=== PATIENT | male | born 1940 | race Caucasian/White ===

== ENCOUNTER 2024-08-06 14:24 | Inpatient (IN) | payer OTHER, SELFPAY ==
[2024-08-06] VITALS (8 sets, daily range): BP systolic 101–122; BP diastolic 65–84; BMI 20.4; BMI 22.2
--- NOTE | 2024-08-06 12:14 | ED.GENMED ---
History of Present Illness
General
Chief Complaint: Breathing Problem
Time Seen by Provider: 08/06/24 12:01
History of Present Illness
History of Present Illness:
83-year-old male with history of COPD, chronic tobacco abuse, and prior stroke presents to the emergency department from home for reported shortness of breath as well as worsening wound to the left great toe. Patient is not certain why he is here
however was sent in by family due to these complaints. States he has been short of breath for 15+ years and denies any acute worsening. No fever.
Past History
Past History
ED Past Medical History: CAD, COPD, CVA and Other (Stroke, prostate cancer, bilateral hearing impairment, left hip fracture); Negative HTN, Hypercholesterolemia or NIDDM
ED Past Surgical History: Orthopedic (Knee arthroscopy) and Other (Removal of prostate for cancer, and multiple urologic surgeries)
Social History
Tobacco: Smoker
Alcohol: Occasional
Drug: None
Personal:
Living: alone
Employment: Retired
Family History
Family History: Other (Noncontributory)
Review of Systems
Review of Systems
Allergies reviewed?: Yes
All Other Systems: ROS reviewed and negative except as documented in HPI and ROS
Phy Exam
Physical Exam
Physical Exam:
GEN: Well appearing, NAD, WDWN
HEENT: Oral mucosa moist, no scleral icterus
Cardiac: Regular rate and rhythm
Lung: No respiratory distress, no tachypnea, diminished breath sounds bilat, no wheezes
MSK: No gross deformity or injuries
Skin: Good color, no pallor or jaundice. Large necrotic gangrenous wound to the dorsal medial aspect of the left great toe, left dorsalis pedis pulses not appreciated by Doppler however monophasic PT pulses found. Diffuse edema to the left midfoot
and erythema extending from the necrotic wound to the midfoot. There are several more superficial ulcerations to the medial aspect of the right foot and great toe, dorsalis pedis pulses monophasic and weak by Doppler, posterior tibialis is biphasic
and stronger by Doppler on the right
Neuro: AO x3, moves all extremities freely
Psych: Calm, cooperative
Scores
Heart Failure Risk
Heart Failure Risk Score: Not Applicable
Course
Orders/Labs/Results
Orders:
Orders
08/06/24 Lunch
Clear Liquid
At Your Request: Limited Participation
08/06/24 12:13
CR Toe(s) Min 2 Vw Left Urgent
Comment:
Reason For Exam: gangrene
08/06/24 12:14
CMP [Comprehensive Metabolic Panel] Urgent
Complete Blood Count/With Diff Urgent
ESR [Erythrocyte Sed Rate] Urgent
CR Chest - 2 Views Urgent
Comment:
Reason For Exam: SOB
08/06/24 12:15
COVID-19 Antigen Urgent
Source: Nasal Swab
CRP [C-Reactive Protein] Urgent
Prothrombin Time Urgent
Influenza A+B Rapid Molecular Urgent
LYSSA Source: Nasal Swab
Specimen Description:
08/06/24 13:16
CR Ankle - Right Min 3 Views * Urgent
Comment:
Reason For Exam: pain
08/06/24 13:31
Piperacillin/Tazo 3.375 Gram [Zosyn] 3.375 gram in 50 ml IV NOW
08/06/24 14:05
Admit/Transfer Patient As Directed
Co-Sign Provider:
Level of Care: Inpatient admission
Assign to:: Medical/Surgical
Physician / Group: htay
Diagnosis: Gangrene of toe of left foot, Cellulitis of left foot, undiagnosed PAD
Reason for Hospitalization: Gangrene of toe of left foot, Cellulitis of left foot, suspected undiagnosed PAD
Expected length of stay greater than two midnights?: Yes
ELOS- Estimated Length of Stay in days: 3
I certify the patient meets the requirements for IP care: Yes
08/06/24 14:09
Code Status As Directed
Resuscitation Status: Full Code
08/06/24 14:20
Code Status As Directed
Resuscitation Status: Do not resuscitate
Reached after discussion with pt or family/Healthcare POA: Yes
Decision communicated with: daughter
DNR Bracelet Application ONCE
08/06/24 15:34
0.9% Sodium Chloride 1000 ml [Nss] 1,000 ml IV 60 mls/hr
Acetaminophen [Tylenol] 650 mg PO Q4HPRN PRN
Albuterol [ProAIR HFA INHALER] 2 puff INH R Q6HPRN PRN sob/wheezing
Bisacodyl [Dulcolax] 10 mg RECTAL [id number] PRN
Docusate W/Senna [Senokot-S] 1 tablet PO BIDPRN PRN
HYDROmorphone [Dilaudid] 0.5 mg IV Q4HPRN PRN
Ipratropium/Albuterol Sulfate [Duoneb] 3 ml INH R Q4HPRN PRN copd
Ketorolac [Toradol] 10 mg IV Q6HPRN PRN
Ondansetron Injectable [Zofran] 4 mg IV Q6HPRN PRN
Polyethylene Glycol Powder [Miralax] 17 grams PO DAILYPRN PRN
08/06/24 15:34
PODIATRY CONSULT Routine
Consulting Provider: Misty Silva
Was physician already notified: Yes
Reason for consult: Lt great toe gangrene
Activity As Directed
Activity Level: With Assistance
Intake/ Output As Directed
Frequency: Per unit guidelines
Vital Signs As Directed
Frequency: Per unit guidelines
O2 Therapy [RESP] Routine
Nasal Cannula Liter Flow: 2 LPM
Titrate/Wean O2 to maintain O2 sat greater than (%): 92
DX Deep Vein Thrombosis Video Routine
08/06/24 16:07
Vancomycin [Vancocin] 1,500 mg 0.9% Sodium Chloride 500 ml [Nss] 500 ml IV NOW
08/06/24 18:00
Enoxaparin Sodium [Lovenox] 40 mg SC QPM
08/06/24 20:00
Piperacillin/Tazo 3.375 Gram [Zosyn] 3.375 gram in 50 ml IV Q6H
czsvyjhaqa-snsvkopf-gpejfedico [Breztri Aerosphere] 2 inh INH R BID
08/06/24 22:00
Aspirin Low Dose EC [Aspir Low (Enteric Coated)] 81 mg PO HS
Cetirizine HCl [Zyrtec] 10 mg PO HS
Sennosides [Senokot] 8.6 mg PO HS
08/07/24 06:00
Basic Metabolic Panel IN AM
Complete Blood Count/With Diff IN AM
08/07/24 08:00
Escitalopram Oxalate [Lexapro] 5 mg PO DAILY
Nicotine [Nicoderm Transdermal] 14 mg TRANSDERM DAILY
Pantoprazole [Protonix] 40 mg PO DAILY
Abnormal Lab Results
08/06/24 08/06/24
12:14 12:15
RBC 3.77 L 10^6/uL
(4.70-6.10)
Hgb 7.8 L g/dL
(13.0-18.0)
Hct 29.7 L %
(39.0-52.0)
MCV 78.8 L fL
(80.0-94.0)
MCH 20.7 L pg
(27.0-31.0)
MCHC 26.3 L g/dL
(33.0-37.0)
RDW 19.9 H %
(11.5-14.5)
Absolute Monos (auto) 1.0 H 10^3/uL
(0.1-0.6)
Monocytes % 11.1 H %
(1.7-9.3)
ESR 74 H mm/hour
(0-20)
Carbon Dioxide 31 H mmol/L
(22-30)
Glucose 104 H mg/dl
(70-99)
Alkaline Phosphatase 150 H U/L
(38-126)
C-Reactive Protein 70.50 H mg/L
(0.0-10.00)
08/06/24 12:14
08/06/24 12:14
Vital Signs
Initial and Last Documented VS:
Initial Vital Signs
Temp Pulse Resp Pulse Ox
98.1 F 100 26 96
08/06/24 11:57 08/06/24 11:57 08/06/24 11:57 08/06/24 11:57
Last Documented Vital Signs
Temp Pulse Resp BP Pulse Ox
98.7 F 99 20 121/67 97
08/06/24 15:46 08/06/24 15:46 08/06/24 15:46 08/06/24 15:46 08/06/24 16:12
MDM/Problems Addressed
MDM/Problems Addressed:
Will admit the patient for likely severe peripheral arterial disease with necrotic changes of the foot. He has no acute pain suggesting acute arterial embolism. Regards to his breathing difficulty his symptoms did improve with DuoNeb and steroids
given prehospital however at this time has no wheezing and no x-ray findings concerning for acute infectious etiology
*Pulse Oximetry
SaO2: 96
Nasal Cannula flow liters per minute: 2
*Critical Care Note
Total Time (30-74mins, 75-104mins- exclusive of procedures): Not Applicable
ED Attending Note
-
Portions of this chart may have been created with voice recognition software.� Occasional wrong word or��sound alike� substitutions may have occurred due to the inherent limitations of voice recognition software.
Discharge Plan
Departure
Patient Disposition: Admit
Date of Disposition: 08/06/24
Time of Disposition: 13:31
Admit to: Med/Surg
Presentation/result/management discussed w/ accepting MD/DO: Hospitalist
Discharge Problem:
Gangrene of toe of left foot, Cellulitis of foot, left, PAD (peripheral artery disease)
Interventions
Interventions:
*Risk Screen - Suicide Last Done: 08/06/24 11:57
*General Assessment Last Done: 08/06/24 11:57
*Neglect/Abuse Screening Last Done: 08/06/24 11:57
*ED- Fall Risk Assessment Last Done: 08/06/24 11:57
*ED COVID-19 Vaccine History Last Done: 08/06/24 11:57
*Nursing Disposition Last Done: 08/06/24 15:28
ED- Cardiac Assessment Last Done: 08/06/24 12:03
ED- Pulmonary Assessment Last Done: 08/06/24 12:03
Discharge Date and Time
Discharge Date/Time: 08/06/24 15:35
[2024-08-06 12:34] LABS: INR 0.99; PT 13.4 Sec (11.4-14.6)
[2024-08-06 12:42] LABS: COVID-19 Antigen Negative (Negative)
[2024-08-06 12:49] LABS: ALT (SGPT) 17 U/L (0-50); AST (SGOT) 27 U/L (17-59); Albumin 3.5 g/dl (3.5-5.0); Alkaline Phosphatase 150 U/L (38-126); Blood Urea Nitrogen 13 mg/dl (9-20); Calcium 8.7 mg/dl (8.4-10.2); Carbon Dioxide 31 mmol/L (22-30); Chloride 101 mmol/L (98-107); Estimated Creatinine Clearance 72 ml/min; Glucose 104 mg/dl (70-99); Potassium 4.5 mmol/L (3.5-5.1); Sodium 139 mmol/L (135-145); Total Bilirubin 0.4 mg/dl (0.2-1.3); Total Protein 6.7 g/dl (6.3-8.2); eGFR > 60.00
--- NOTE | 2024-08-06 13:39 | HPS.HSE ---
Family Physician
-
Family Physician: Prateek Paniagua
Chief Complaint
-
- from home for reported shortness of breath as well as worsening wound to the left great toe.
- Patient is not certain why he is here however was sent in by family due to these complaints.
History of Present Illness
HPI
81M HX home O2 dependent COPD and chronic hypoxic respiratory failure seen at ER:
- from home for reported shortness of breath as well as worsening wound to the left great toe.
- Patient is not certain why he is here however was sent in by family due to these complaints.
- he has been short of breath for 15+ years and denies any acute worsening.
- No fever.
Medical History
Past Medical History
Past Medical History: Reports Other
Additional Past Medical History:
o2 dependant at home
COPD
chronic respiratory failure
cad
cva
prostate ca
Past Surgical History: Reports Other
Additional Past Surgical History:
right knee surgery
prostatectomy
Social History
Tobacco: Smoker (0.5 pack daily)
Alcohol: None
Drug: None
Personal: Single
Living: With Family
Employment: Retired
Family History
Family History: Not pertinent
Allergies / Home Medications
Allergies reflects when Allergies were last updated in [employer].
Home Medications with original date entered in [employer]
Allergy/Medication List:
Allergies
Allergy/AdvReac Type Severity Reaction Status Date / Time
No Known Allergies Allergy Verified 04/05/18 14:38
Home Medications
albuterol sulfate 90 mcg/actuation aerosol inhaler 2 puff inhalation R Q6 PRN sob/wheezing 04/15/22
aspirin 81 mg tablet,delayed release 81 mg PO HS 04/15/22
budesonide 160 mcg-glycopyr 9 mcg-formot 4.8 mcg/actuation HFA inhaler (Breztri Aerosphere) 2 inh inhalation R BID 04/15/22
cetirizine 10 mg tablet (Zyrtec) 10 mg PO HS 04/15/22
ipratropium 0.5 mg-albuterol 3 mg (2.5 mg base)/3 mL nebulization soln 3 ml inhalation R Q4 PRN copd 04/15/22
lorazepam 0.5 mg tablet 0.25 - 0.5 mg PO Q6H PRN anxiety 04/15/22
multivitamin 1 tab PO DAILY 04/15/22
ondansetron HCl 8 mg tablet 8 mg PO Q8H PRN nausea/vomiting 04/15/22
pantoprazole 40 mg tablet,delayed release 40 mg PO DAILY 04/15/22
prednisone 5 mg tablet 5 mg PO DAILY 04/15/22
sennosides 8.6 mg tablet (Senokot) 8.6 mg PO HS 04/15/22
Review of Systems
-
Constitutional: Reports No Symptoms
EENT: Reports No Symptoms
Respiratory: Reports Trouble Breathing
Cardiac: Reports No Symptoms
Abdomen/GI: Reports No Symptoms
: Reports No Symptoms
Skin: Reports Other (worsening wound to the left great toe)
Neurological: Reports No Symptoms
Endocrine: Reports No Symptoms
Hematologic/Lymphatic: Reports No Symptoms
Psych: Reports No Symptoms
Physical Exam
Vital Signs
Vital Signs
Temp Pulse Resp BP Pulse Ox
98.2 F 97 27 122/65 96
08/06/24 12:00 08/06/24 12:00 08/06/24 12:00 08/06/24 12:00 08/06/24 12:16
Physical Exam
General: Well Developed, Well Nourished and No Apparent Distress
HEENT: NormoCephalic, Moist mucous membranes and Atraumatic
Respiratory: Clear
Cardiac: S1/S2 and Regular Rhythm; No Murmur or Rub
GI: Soft, Non Tender, Non Distended and Normal Bowel Sounds; No Organomegaly
Rectal: Deferred by Provider
Musculoskeletal: No Clubbing, No Cyanosis and No Edema
Skin: Rash and Other (worsening wound to the left great toe)
Neuro: Nonfocal/grossly intact
Laboratory Results
-
08/06/24 12:14
Laboratory Results
PT 13.4 Sec (11.4-14.6) 08/06/24 12:15
INR 0.99 08/06/24 12:15
Total Bilirubin 0.4 mg/dl (0.2-1.3) 08/06/24 12:14
AST 27 U/L (17-59) 08/06/24 12:14
ALT 17 U/L (0-50) 08/06/24 12:14
Alkaline Phosphatase 150 U/L (38-126) H 08/06/24 12:14
Data Reviewed
-
Diagnostic Radiology: Other (pending )
Old Records: Reviewed
Impression/Plan
-
Vital Signs
Temp Pulse Resp BP Pulse Ox
98.2 F 97 27 122/65 96
08/06/24 12:00 08/06/24 12:00 08/06/24 12:00 08/06/24 12:00 08/06/24 12:16
Abnormal Labs
08/06/24 08/06/24
12:14 12:15
Carbon Dioxide 31 H
Glucose 104 H
Alkaline Phosphatase 150 H
C-Reactive Protein 70.50 H
Pending XR: Ankle , CXR and Lt Foot and G Toer XR
Last hospitalist admission: 04/15/2022 - 04/19/2022
DISCHARGE DIAGNOSIS:
- Chronic obstructive pulmonary disease exacerbation with hypoxic respiratory failure.
ASSESSMENT & PLAN
Pending Rx reconciliation
Gangrene of Lt great toe
left foot cellulitis
Rt foot 3 planter ulcers , two at Medial planter surface, one at lateral planter surface
Suspect PAD (peripheral artery disease)
Elevated CRP
Suspect undiagnosed vasculopathy
HX CAD
Nicotine Dependence
- f/u final XR report
- Empiric Vanco and Zosyn
- Developmental Psychologist consult
HX advanced COPD , home O2 depedent chronic hypoxic respiratory failure
-Supplemental O2 to keep sat greater than 92
-DuoNebs as needed
CAD
-Aspirin continued
Anxiety
-Lorazepam continued
GERD
-Protonix continued
Nicotine dependence
-Smokes half a pack a day
-Nicotine patch
-Encouraged smoking cessation
DVT Px: LMWH
Code: DNR per daughter
IP MS
[2024-08-06] MEDS: ZOSYN 50 IV ×2 (13:41→21:12)
[2024-08-06 13:59] LABS: Erythrocyte Sed Rate 74 mm/hour (0-20)
[2024-08-06 14:10] LABS: % Basophils 0.3 % (0-2); % Eosinophils 3.3 % (0-6); % Immature Granulocytes 0.3 % (0-0.5); % Lymphocytes 21.5 % (20.5-51.1); % Monocytes 11.1 % (1.7-9.3); % Neutrophils 63.5 % (42.2-75.2); Absolute Eosinophils 0.3 10^3/uL (0-0.7); Absolute Neutrophils 5.8 10^3/uL (1.4-6.5); Hematocrit 29.7 % (39.0-52.0); Hemoglobin 7.8 g/dL (13.0-18.0); Mean Corp Hgb Conc. 26.3 g/dL (33.0-37.0); Mean Corpuscular Hgb 20.7 pg (27.0-31.0); Mean Corpuscular Volume 78.8 fL (80.0-94.0); Mean Platelet Volume 9.1 fL (7.4-10.4); Nucleated Red Blood Cells % 0 % (-); Platelet Count 359 10^3/uL (130-400); Red Blood Cell Count 3.77 10^6/uL (4.70-6.10); Red Cell Dist. Width 19.9 % (11.5-14.5); White Blood Cell Count 9.2 10^3/uL (4.8-10.8)
--- NOTE | 2024-08-06 14:43 | CM ---
CM reviewed chart and met with pt and daughter Nohemi at bedside in ED.
Lives with Nohemi and grandmalini Carreno, multistory split level home, 3-4 ANA, 6 steps to BR/BA
Per pt and daughter he does not leave his room once inside, has commode. Ambulates in room with RW, also has cane
Needs assistance with ADLs and personal care, daughter brings meals to his room.
Has home O2, concentrator and portable tanks from [facility] [employer].
Hx with [facility] and SNF at [facility].
PCP: Prateek Paniagua
Pharmacy: [facility]
Discharge plan: Pending outcome of ongoing medical evaluation
[2024-08-06 15:18] LABS: Normal RBC Morphology No
[2024-08-06 15:20] LABS: Anisocytosis 2+; Hypochromasia 2+; Target Cells 1+
--- NOTE | 2024-08-06 15:46 | CON.VAS ---
Addendum entered and electronically signed by Christian Gillette MD 08/06/24 17:53:
Seen and examined with TYORNE Munroe. Agree with findings as noted below. 83-year-old male with chronic multiple medical conditions including chronic COPD/respiratory failure, oxygen dependent, CAD, longstanding tobacco use. Has bilateral foot
wounds. Left first toe gangrene, right sided potentially ischemic appearing ulcers. He does potentially note some pain in the feet at night, but slightly difficult to really ascertain if he is having pain (history challenging). He does not really
walk much per his daughter who is at the bedside.
On exam/he is awake and alert. His breathing is somewhat labored even at rest. He is on oxygen nasal cannula. His abdomen is soft. Groins demonstrate nonpalpable femoral pulses bilaterally. Nonpalpable distally. Left first toe with ischemic
changes and dry gangrene. Right first toe plantar aspect and medially with ulceration is circular in nature, dry but red tissue/granulation seen.
Plan/ Bilateral lower extremity chronic limb threatening ischemia. He is a very high risk patient. I suspect he has multilevel disease including likely heavy plaque laden aorta and inflow disease. I am not sure that revascularization will be
simple for him. However he has limb-threatening ischemia and therefore amputation would be the other option here. I do not know that he be a candidate for any open surgical procedure but we have to see what the options are. Therefore recommend
CTA of the aorta with runoff and then I will talk to him about options for revascularization pending restratification.
Original Note:
Consultation
Consultation Request
Date/Time Consultation Performed: 08/06/24 4pm
Performing Provider: Nain
Reason for Consultation: Nonhealing bilateral foot wounds
Medical History
-
Chief Complaint: Nonhealing left great toe wound
History of Present Illness:
83-year-old male with past medical history COPD, chronic respiratory failure, CAD, CVA, prostate cancer, O2 dependent (medical information obtained from hospital medical records) presents today to the emergency room for nonhealing left great toe
wound. Patient and family member are poor historians and cannot recall any of his medical history. Family member did admit to caring for the left toe wound as well as scattered wounds to bilateral feet with Epsom salt baths and peroxide for the
last month. She states that the wounds began 1 month ago. They are unaware of how wounds began or if patient has had wounds in the past. They are unsure if patient has had stenting, ballooning, surgeries or procedures on either leg. Patient is
unsure why he is at the hospital.
Vascular surgery consult for nonhealing wounds. Patient seen at bedside in the ER. I could not appreciate any distal palpable pulses or femoral pulses. I could not obtain a Doppler signal at the DP or PT. Right foot warm with good cap refill,
image below. Left foot warm with sluggish cap refill to the great toe. Image below. Patient states he has no pain in the great toe and does not feel ready to palpate. Patient admits to occasional pain in the feet at night. Patient admits to
occasional pain in the feet at rest. Patient does not walk he states that he rolls around in a chair at home. He is unsure if he has ever had claudication.
Patient is an active smoker, states he has been smoking since he was 4 years old.
Right foot
Left foot
Past Medical History
Past Medical History: Other (See above)
Past Surgical History: Other (See above)
Social History
Tobacco: Smoker (Since 4 years old)
Alcohol: None
Drug: None
Personal: Single
Living: With Family
Employment: Retired
Family History
Family History: Reviewed & Not Pertinent
Allergies / Home Medications
Allergy/AdvReac Type Severity Reaction Status Date / Time
No Known Allergies Allergy Verified 08/06/24 11:57
�Medication �Instructions �Recorded �Confirmed �Type
albuterol sulfate 90 mcg/actuation 2 puff inhalation R Q6HPRN PRN 04/15/22 08/06/24 History
aerosol inhaler sob/wheezing
aspirin 81 mg tablet,delayed 81 mg PO HS Blood clot 04/15/22 08/06/24 History
release prevention/tx
budesonide 160 mcg-glycopyr 9 2 inh inhalation R BID 04/15/22 08/06/24 History
mcg-formot 4.8 mcg/actuation HFA Lung/breathing issues
inhaler (Breztri Aerosphere)
cetirizine 10 mg tablet (Zyrtec) 10 mg PO HS Allergies 04/15/22 08/06/24 History
ipratropium 0.5 mg-albuterol 3 mg 3 ml inhalation R Q4HPRN PRN copd 04/15/22 08/06/24 History
(2.5 mg base)/3 mL nebulization
soln
multivitamin 1 tab PO DAILY Supplement 04/15/22 08/06/24 History
pantoprazole 40 mg tablet,delayed 40 mg PO DAILY Gastrointestinal 04/15/22 08/06/24 History
release issue
sennosides 8.6 mg tablet (Senokot) 8.6 mg PO HS Constipation 04/15/22 08/06/24 History
escitalopram oxalate 5 mg tablet 5 mg PO DAILY 08/06/24 08/06/24 History
(Lexapro)
naproxen sodium 220 mg tablet 220 mg PO BIDPRN PRN mild pain 08/06/24 08/06/24 History
(Aleve)
Review of Systems
-
History Source: Patient and Family
All other systems: Negative unless noted
Constitutional: Reports No Symptoms
EENT: Reports No Symptoms
Respiratory: Reports Trouble Breathing
Cardiac: Reports No Symptoms
Vascular: Reports Leg Pain / Claudication
Abdomen/GI: Reports No Symptoms
: Reports No Symptoms
Musculoskeletal: Reports Edema
Skin: Reports Other (Nonhealing wounds bilaterally)
Neurological: Reports No Symptoms
Endocrine: Reports No Symptoms
Physical Exam
Vital Signs
Temp Pulse Resp BP Pulse Ox
98.2 F 102 26 101/80 96
08/06/24 12:00 08/06/24 15:15 08/06/24 15:15 08/06/24 15:00 08/06/24 12:16
Lab Results
08/06/24 12:14
08/06/24 12:14
Physical Exam
General: No Apparent Distress
HEENT: Normocephalic and Atraumatic
Respiratory: Non Labored Respirations
Cardiac: Negative JVD
GI: Soft and Non Tender
Musculoskeletal: Cyanosis and Edema
Skin: Warm, Dry and Other (See images above for wounds)
Neuro: Awake and Alert
Psych: Calm
Assessment / Plan
-
83-year-old male here with nonhealing bilateral foot wounds left greater than right, images above
Plan:
- CTA aorta with runoff
- Will discuss with attending when scan complete
Data Reviewed
-
Labs: Labs Reviewed by me
[2024-08-06] MEDS: NSS 1000 IV (16:30)
[2024-08-06] MEDS: VANCOCIN 530 MG IV (16:31)
--- NOTE | 2024-08-06 16:33 | PHA.VAN.IN ---
Assessment
- Assessment
Renal Function: Appears similar to baseline (04/18/22 BASELINE SCR: 0.9)
Concomitant Antimicrobials: ZOSYN
- Previous Dosing Experience
Previous Regimen: NONE
AUC Dosing Plan
- Dosing Variables
Dosing Weight (kg): 66.3
Dosing CrCl (ml/min): 72
Vd coefficient (L/kg): 0.7
- Empiric Dosing
Initial / Loading Dose: 1500MG
Maintenance Regimen: 750MG IV Q12H
Estimated AUC (mcg*h/mL): 520
Estimated Peak (mcg*h/mL): 30.1
Estimated Trough (mcg/ml): 14.9
Estimated Half Life (H): 10.8
Pharmacokinetics Vancomycin I
- -
Patient Age: 83
Patient Sex: Male
Vancomycin Day #: 1
Indication: Skin And Soft Tissue (GANGRENE [L] GREAT TOE)
Requesting Provider: KIARRA
Height / Weight:
Height 5 ft 10 in
Actual Weight 70.307 kg
Pertinent Past Medical History: PLANTAR FOOT ULCERS
- Vital Signs / Lab Results
Temp Pulse Resp BP Pulse Ox
98.7 F 99 20 121/67 97
08/06/24 15:46 08/06/24 15:46 08/06/24 15:46 08/06/24 15:46 08/06/24 16:12
Lab Results - Hematology
08/06/24
12:14
WBC 9.2
Lab Results - Chemistry
08/06/24
12:14
BUN 13
Creatinine 0.7
Estimated Creat Clear 72
Albumin 3.5
Microbiology Results
08/06/24 12:15 Influenza Types A & B (MERVAT) - Final
Nasal Swab Negative for Influenza A & B, NAAT
Negative results must be combined with clinical observations
and patient history.
Nucleic Acid Amplification test (NAAT)performed on the
[employer] platform.
[2024-08-06] MEDS: LOVENOX 40 MG SC (17:11)
[2024-08-06] MEDS: SYMBICORT 160/4.5 MCG INHALER 2 PUFF INH (19:25)
--- NOTE | 2024-08-06 20:30 | PTCARENOTE ---
Patient taken to CT via accompanied by PCT. Patient able to stand and pivot to WC without difficulty. CT called shortly after, patient unable to tolerate laying flat and restless on CT stretcher. Unable to perform scan at this time.
[2024-08-06] MEDS: SENOKOT 8.6 MG PO (21:12)
[2024-08-06] MEDS: ASPIR LOW (ENTERIC COATED) 81 MG PO (21:12)
[2024-08-06] MEDS: ZYRTEC 10 MG PO (21:12)
[2024-08-06] MEDS: TORADOL 10 MG IV (21:36)
[2024-08-07] MEDS: ZOSYN 50 IV ×4 (02:28→20:15)
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
[2024-08-07] MEDS: DILAUDID 0.5 MG IV ×3 (03:32→17:23)
[2024-08-07] MEDS: VANCOCIN 150 IV (05:29)
[2024-08-07 07:07] VITALS: BP 148/78
[2024-08-07 07:46] LABS: % Basophils 0.1 % (0-2); % Immature Granulocytes 0.6 % (0-0.5); % Lymphocytes 11.1 % (20.5-51.1); % Monocytes 5.8 % (1.7-9.3); % Neutrophils 82.4 % (42.2-75.2); Absolute Immature Granulocytes 0.1 10^3/uL (0-0.05); Absolute Monocytes 0.5 10^3/uL (0.1-0.6); Absolute Neutrophils 7.4 10^3/uL (1.4-6.5); Hematocrit 29.4 % (39.0-52.0); Hemoglobin 7.7 g/dL (13.0-18.0); Mean Corp Hgb Conc. 26.2 g/dL (33.0-37.0); Mean Corpuscular Hgb 20.4 pg (27.0-31.0); Mean Platelet Volume 8.9 fL (7.4-10.4); Nucleated Red Blood Cells % 0 % (-); Platelet Count 347 10^3/uL (130-400); Red Blood Cell Count 3.77 10^6/uL (4.70-6.10); Red Cell Dist. Width 19.8 % (11.5-14.5); White Blood Cell Count 8.9 10^3/uL (4.8-10.8)
[2024-08-07 08:09] LABS: Blood Urea Nitrogen 18 mg/dl (9-20); Calcium 8.7 mg/dl (8.4-10.2); Carbon Dioxide 32 mmol/L (22-30); Chloride 102 mmol/L (98-107); Estimated Creatinine Clearance 77 ml/min; Glucose 126 mg/dl (70-99); Potassium 4.9 mmol/L (3.5-5.1); Sodium 139 mmol/L (135-145); eGFR > 60.00
[2024-08-07] MEDS: SYMBICORT 160/4.5 MCG INHALER 2 PUFF INH ×2 (08:15→20:50)
[2024-08-07] MEDS: SPIRIVA RESPIMAT 2.5 MCG 2 PUFF INH (08:15)
--- NOTE | 2024-08-07 08:43 | PHA.VAN.FU ---
Vancomycin Assessment / Plan
- Assessment
Renal Function: Stable
WBC's are: Stable
In the past 24 hrs, patient has been: Afebrile
Concomitant Antimicrobials: Zosyn
- Dosing Plan
Continue: Vancomycin 750 mg IV Q12H
- Monitoring Plan
No level(s) ordered at this time: Consider level when at steady state with current regimen
- Follow Up
Pharmacy will continue to follow.
Vancomycin Follow UP
- -
Patient Age: 83
Patient Sex: Male
Vancomycin Day #: 2
Indication: Skin And Soft Tissue (GANGRENE [L] GREAT TOE)
Requesting Provider: KIARRA
Height / Weight:
Height 5 ft 10 in
Actual Weight 70.307 kg
Pertinent Past Medical History: PLANTAR FOOT ULCERS, prostate cancer
- Vital Signs / Lab Results
Temp Pulse Resp BP Pulse Ox
98.2 F 92 18 148/78 99
08/07/24 07:07 08/07/24 08:20 08/07/24 08:20 08/07/24 07:07 08/07/24 08:20
Lab Results - Hematology
08/06/24 08/07/24
12:14 07:05
WBC 9.2 8.9
Lab Results - Chemistry
08/06/24 08/07/24
12:14 07:05
BUN 13 18
Creatinine 0.7 0.7
Estimated Creat Clear 72 77
Albumin 3.5
Microbiology Results
08/06/24 12:15 Influenza Types A & B (MERVAT) - Final
Nasal Swab Negative for Influenza A & B, NAAT
Negative results must be combined with clinical observations
and patient history.
Nucleic Acid Amplification test (NAAT)performed on the
[employer] platform.
[2024-08-07] MEDS: LEXAPRO 5 MG PO (08:53)
[2024-08-07] MEDS: PROTONIX 40 MG PO ×2 (08:53→20:15)
[2024-08-07] MEDS: NICODERM TRANSDERMAL 14 MG TRANSDERM (08:53)
[2024-08-07] MEDS: NSS 1000 IV (08:54)
--- NOTE | 2024-08-07 08:56 | WOUNDNOTE ---
RIGHT MEDIAL TOE AND FOOT WOUND
--- NOTE | 2024-08-07 08:57 | WOUNDNOTE ---
LEFT GREAT TOE
--- NOTE | 2024-08-07 08:58 | WOUNDNOTE ---
PLANTAR VIEW OF LEFT FOOT
--- NOTE | 2024-08-07 09:28 | WOUNDNOTE ---
[facility] RN NOTE: Reviewed chart and met with patient. Patient found to be confused and in restraints at time of assessment. Patient with gangrenous left toe and arterial appearing wounds of right medial great toe and foot. Will recommend Betadine to all
wounds until Podiatry evaluates right foot wounds and vascular testing and plan are complete. A CTA with runoff today is planned for today. Heels are intact. Patient could not be turned due to agitation. Per RN, Jovita sacrum is intact. Will confirm
orders with Hospitalist and follow peripherally.
[2024-08-07 09:57] LABS: Iron 24 ug/dl (49-181)
[2024-08-07 10:06] LABS: Percent Saturation 5 % (20-50); Total Iron Binding Capacity 423 ug/dl (261-462)
[2024-08-07 11:42] VITALS: BMI 22.2
--- NOTE | 2024-08-07 11:44 | CM ---
Chart reviewed and patient is currently in restraints, plan will to follow medical progress and await PT/OT evaluations and recommendations.
Plan; Await PT/OT evaluations.
[2024-08-07 12:15] LABS: Ferritin 8.2 ng/ml (17.9-464.0)
[2024-08-07 12:30] LABS: Vitamin B12 492 pg/ml (239-931)
[2024-08-07] MEDS: ATIVAN 0.5 MG PO (14:30)
--- NOTE | 2024-08-07 15:08 | W.PN.HOSP.TC ---
Today's Communication/Plan
-
CTA
Ativan for him to get it
Pt refusing otherwise
Assessment / Plan
Assessment / Plan
83-year-old man with nonhealing left big toe ulcer. Patient was using Epsom salt baths and peroxide for the past month.
X-ray of the toe-soft tissue defect in the medial aspect of the great toe
CVS: S1-S2 normal
Chest: CTA B/L
Abdomen: Soft, NT ,Bowel sounds present
Extremities: Left big toe gangrene
Plantar ulcer right foot.
# Nonhealing ulcers on the toes
Left big toe gangrene
PAD
Cellulitis
Peripheral artery disease
Continue antiplatelets. Unclear why patient is not on a statin
CTA Run off ordered to assess PAD
ID eval
# Anemia- DEBORA- Iron IV
# COPD
Chronic hypoxic respiratory failure-on home oxygen
Continue Breztri,Zyrtec, Duo Nebs,
# Coronary disease-continue aspirin
# History of CVA-continue aspirin
# History of prostate cancer
# GERD-PPI
# Depression- Lexapro
# Active smoker-cessation counseling.
# DVT Prophylaxis- Lovenox
# DNR
D/W RN
Called daughter , could not reach
spoke to grand son and updated. Possibility of amputation discussed.
More than 50 min
Part of this note was created using voice recognition system. Occasional wrong word or��sound alike� substitutions may have inadvertently occurred due to the inherent limitations of voice recognition software. If noted kindly bring it to my
attention for correction.
Anticipated Discharge: 24 - 48 hours
Subjective/Interval History
-
Date of Service: August 07, 2024
Objective Data
-
Labs:
Laboratory Results
08/07/24
07:05
WBC 8.9
Hgb 7.7 L
Hct 29.4 L
Plt Count 347
Sodium 139
Potassium 4.9
Chloride 102
Carbon Dioxide 32 H
BUN 18
Creatinine 0.7
Glucose 126 H
Calcium 8.7
Vital Signs:
Vital Signs
Temp Pulse Resp BP Pulse Ox
98.2 F 92 18 148/78 99
08/07/24 07:07 08/07/24 08:20 08/07/24 08:20 08/07/24 07:07 08/07/24 08:20
I&O
08/06/24 08/07/24 08/08/24
06:59 06:59 06:59
Intake Total 480 / 480
Balance 480 / 480
[2024-08-07 15:41] VITALS: BP 134/61
[2024-08-07] MEDS: FERRLECIT 110 MG IV (17:05)
[2024-08-07] MEDS: LOVENOX 40 MG SC (17:24)
--- NOTE | 2024-08-07 17:34 | CON.ID ---
Consultation
-
Date/Time Consultation Requested: August 07, 2024 1521
Date/Time Consultation Performed: August 07, 2024 1730
Requesting Provider: Dr. sharan Robledo
Performing Provider: Dr. Brittany Isbell
Reason for Consultation: Toe gangrene
Chief Complaint / Past History
Chief Complaint
Black toe
History of Present Illness
83-year-old male active tobacco use, CAD, COPD, chronic hypoxic respite failure on home O2 who presented to the ER due to worsening L great toe. He reports chronic left great toe wound for a long time. However the wound got progressively worse.
Recently the toe turned black. He also has 2 chronic wounds on the right foot. He has not seen podiatry for these wounds. No fevers or chills. He is currently on vancomycin and Zosyn. Angiogram is pending. No fevers or chills. No cough. No
nausea vomit abdominal pain or diarrhea. No dysuria.
Past History
Additional Past Medical History:
COPD chronic hypoxic respiratory failure on home O2
Asbestosis with pleural plaques
CVA
CAD
Prostate cancer status post prostatectomy
Right knee replacement
Hernia repair
Allergy History:
No Known Allergies Allergy (Verified 08/06/24 11:57)
Medications Reviewed: Yes
Current Antibiotics:
Zosyn
Vancomycin
Social History
Tobacco: Smoker (From 2.5 ppd to current 0.75 ppd)
Alcohol: None
Drug: None
Living: With Family (Daughter)
Family History
Family History: Not Pertinent
Review of Systems
Review of Systems
General: Negative Fever, Chills or Change in Appetite
HEENT: Negative Stiff Neck, Sinus Problems or Headache
Cardiovascular: Negative Chest Pain
Respiratory: Dyspnea; Negative Cough
Gasteroenterology: Negative Nausea, Vomiting or Diarrhea
Genital / Urological: Negative Dysuria or Flank Pain
Endocrine: Negative Weakness
All systems: All other systems were reviewed and were negative
Vital Signs
Temp Pulse Resp BP Pulse Ox
97.7 F 90 18 134/61 96
08/07/24 15:41 08/07/24 15:41 08/07/24 15:41 08/07/24 15:41 08/07/24 15:41
Physical Exam
Physical Exam
Constitutional: No Acute Distress and Comfortable
Eyes: No Conjunctival Hemorrhage and Sclera Anicteric
Cardiovascular: Regular Rate and S1/S2
Pulmonary: Clear
Gastrointestinal: Soft, Non Tender, Non Distended and Normal Bowel Sounds
Genito-Urinary: Negative Clear Urine
Extremities: Negative Edema or Pulses
Wound: Other (Entire left great toe is black and dry, positive malodor. Right great toe plantar and medial foot with round wounds without infection.)
Neurological: AO x 3
Lab / Diagnostic Study Results
08/07/24 07:05
08/07/24 07:05
Abs Immat Gran (auto) 0.1 10^3/uL (0-0.05) H 08/07/24 07:05
Absolute Neuts (auto) 7.4 10^3/uL (1.4-6.5) H 08/07/24 07:05
Absolute Lymphs (auto) 1.0 10^3/uL (1.2-3.4) L 08/07/24 07:05
Absolute Monos (auto) 0.5 10^3/uL (0.1-0.6) 08/07/24 07:05
Absolute Basos (auto) 0.0 10^3/uL (0-0.2) 08/07/24 07:05
Immature Gran % 0.6 % (0-0.5) H 08/07/24 07:05
Neutrophils % 82.4 % (42.2-75.2) H 08/07/24 07:05
Lymphocytes % 11.1 % (20.5-51.1) L 08/07/24 07:05
Monocytes % 5.8 % (1.7-9.3) 08/07/24 07:05
Eosinophils % 0.0 % (0-6) 08/07/24 07:05
Basophils % 0.1 % (0-2) 08/07/24 07:05
ESR 74 mm/hour (0-20) H 08/06/24 12:14
PT 13.4 Sec (11.4-14.6) 08/06/24 12:15
INR 0.99 08/06/24 12:15
C-Reactive Protein 70.50 mg/L (0.0-10.00) H 08/06/24 12:15
Microbiology Results
Micro:
08/06/24 12:15 Influenza Types A & B (MERVAT) - Final
Nasal Swab Negative for Influenza A & B, NAAT
Negative results must be combined with clinical observations
and patient history.
Nucleic Acid Amplification test (NAAT)performed on the
[employer] platform.
08/06/24 CXR: No acute cardiopulmonary process. Chronic changes as described.
08/06/24 Toe XRAY: Soft tissue defect along the medial aspect of the great toe. Underlying slight lucency involving the great toe distal phalanx medial base, suspicious for osteomyelitis. Surrounding soft tissue swelling. Mild to moderate
degenerative changes of the visualized joints. No acute fractures or dislocation.
Assessment / Plan
# Dry gangrene left hallux
# Osteomyelitis of left hallux
# Severe PAD
# Tobacco abuse disorder
- Angiogram pending
- Eventual toe amp
- DC Vancomycin
-Continue Zosyn for now, although doubt effective level reaches foot.
- Smoking cessation encouraged.
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
COPD chronic hypoxic respiratory failure on home O2
Asbestosis with pleural plaques
CVA
CAD
Prostate cancer status post prostatectomy
Right knee replacement
Hernia repair
--- NOTE | 2024-08-07 17:59 | PTCARENOTE ---
Assumed care of pt from previous nurse. Pt provided dilaudid for pain to b/l groin and b/l upper thighs. Positive results as pt is sleeping. Pt to and from CT scan, no results at this time. Pt call parker is within reach, pt calls out, does not ring
yvonne, bed alarm in place, will cont to monitor.
[2024-08-07] MEDS: VANCOCIN IV (18:17)
[2024-08-07] MEDS: COLACE 100 MG PO (20:15)
[2024-08-07] MEDS: ASPIR LOW (ENTERIC COATED) 81 MG PO (21:05)
[2024-08-07] MEDS: SENOKOT 8.6 MG PO (21:05)
[2024-08-07] MEDS: ZYRTEC 10 MG PO (21:05)
[2024-08-07 23:45] VITALS: BP 120/71
[2024-08-08] MEDS: ZOSYN 50 IV ×4 (02:37→19:52)
[2024-08-08] MEDS: ProAIR HFA INHALER 2 PUFF INH ×2 (04:38→19:57)
[2024-08-08] MEDS: SPIRIVA RESPIMAT 2.5 MCG 2 PUFF INH (07:34)
[2024-08-08] MEDS: SYMBICORT 160/4.5 MCG INHALER 2 PUFF INH ×2 (07:34→19:57)
[2024-08-08 07:58] VITALS: BP 142/78
[2024-08-08 08:48] LABS: Hematocrit 28.8 % (39.0-52.0); Hemoglobin 7.4 g/dL (13.0-18.0); Mean Corp Hgb Conc. 25.7 g/dL (33.0-37.0); Mean Corpuscular Hgb 20.4 pg (27.0-31.0); Mean Corpuscular Volume 79.6 fL (80.0-94.0); Mean Platelet Volume 8.9 fL (7.4-10.4); Platelet Count 365 10^3/uL (130-400); Red Blood Cell Count 3.62 10^6/uL (4.70-6.10); White Blood Cell Count 7.3 10^3/uL (4.8-10.8)
[2024-08-08 09:05] LABS: Blood Urea Nitrogen 19 mg/dl (9-20); Calcium 8.1 mg/dl (8.4-10.2); Carbon Dioxide 30 mmol/L (22-30); Chloride 105 mmol/L (98-107); Estimated Creatinine Clearance 67 ml/min; Glucose 73 mg/dl (70-99); Potassium 4.8 mmol/L (3.5-5.1); Sodium 139 mmol/L (135-145); eGFR > 60.00
[2024-08-08] MEDS: MIRALAX 17 GRAMS PO (09:18)
[2024-08-08] MEDS: NICODERM TRANSDERMAL 14 MG TRANSDERM (09:18)
[2024-08-08] MEDS: LEXAPRO 5 MG PO (09:18)
[2024-08-08] MEDS: PROTONIX 40 MG PO ×2 (09:18→19:52)
[2024-08-08] MEDS: COLACE 100 MG PO ×2 (09:18→19:52)
--- NOTE | 2024-08-08 11:31 | W.PN.HOSP.TC ---
Today's Communication/Plan
-
Await Vascular intervention
Assessment / Plan
Assessment / Plan
83-year-old man with nonhealing left big toe ulcer. Patient was using Epsom salt baths and peroxide for the past month.
X-ray of the toe-soft tissue defect in the medial aspect of the great toe
CVS: S1-S2 normal
Chest: CTA B/L
Abdomen: Soft, NT ,Bowel sounds present
Extremities: Left big toe gangrene
Plantar ulcer right foot.
CTA-moderate hepatic cirrhosis.
- Abdomen-moderate to severe diverticulosis of the sigmoid colon. Previous total prostatectomy. Severe discogenic degenerative change L5-S1 severe osteomyelitis in the left great toe.
Deep to an overlying ulceration. Multiple solid pleural-based pulmonary nodules in the right lower lobe largest measuring 1.3 cm and 1.9 cm. Moderate bilateral lower lobe bronchitis.
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
- RLE-Very severe calcific atherosclerotic plaque throughout the iliac arteries with 50% diameter stenosis at the origin of the right FALLON, greater than 70% diameter stenosis of the right IIA and 50 to 70% diameter stenosis in the right EIA.
Complete occlusion of the RCA and SFA. Reconstitution of the distal SFA from collateral blood flow from the profunda femoris artery. Patent popliteal and infrapopliteal arteries containing large amount of atherosclerotic plaque causing severe
stenosis but no occlusion.
-LLE-complete occlusion of the proximal left DAVEY. Patent left posterior tibial and peroneal arteries to the level of the foot. Severe calcific atherosclerotic plaque throughout the left SFA with multilevel severe stenosis more than 70%. Very
severe calcific atherosclerotic plaque in the left BADGER DISTILLER OPERATOR causing more than 70% stenosis. Very severe calcific atherosclerotic plaque in the ROVERTO causing 50 to 70% stenosis in the left EIA.
# Nonhealing ulcers on the toes
Left big toe gangrene
Very severe PAD as above
Cellulitis
Continue antiplatelets. Unclear why patient is not on a statin-add a statin
Will need vascular procedure on the left
ID eval appreciated
# Anemia- DEBORA-continue iron IV
# COPD
Chronic hypoxic respiratory failure-on home oxygen
Continue Breztri,Zyrtec, Duo Nebs,
# Coronary disease-continue aspirin
# History of CVA-continue aspirin
# History of prostate cancer
# GERD-PPI
# Depression- Lexapro
# Moderate hepatic cirrhosis per CT-outpatient GI follow-up
# Pulmonary nodules-needs workup as outpatient
# Diverticulosis sigmoid colon
# Discogenic degenerative change L5-S1
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
50 to 70% diameter stenosis in the proximal celiac artery
# Active smoker-cessation counseling.
# DVT Prophylaxis- Lovenox
# DNR
D/W RN
spoke to grand son and updated. Possibility of amputation discussed.
Overall prognosis guarded given the findings on the CT
Part of this note was created using voice recognition system. Occasional wrong word or��sound alike� substitutions may have inadvertently occurred due to the inherent limitations of voice recognition software. If noted kindly bring it to my
attention for correction.
Anticipated Discharge: > 48 hours
Subjective/Interval History
-
Date of Service: August 08, 2024
Objective Data
-
Labs:
Laboratory Results
08/08/24
06:54
WBC 7.3
Hgb 7.4 L
Hct 28.8 L
Plt Count 365
Sodium 139
Potassium 4.8
Chloride 105
Carbon Dioxide 30
BUN 19
Creatinine 0.8
Glucose 73
Calcium 8.1 L
Vital Signs:
Vital Signs
Temp Pulse Resp BP Pulse Ox
97.8 F 93 20 142/78 94
08/08/24 07:58 08/08/24 07:58 08/08/24 07:58 08/08/24 07:58 08/08/24 07:58
I&O
08/07/24 08/08/24 08/09/24
06:59 06:59 06:59
Intake Total 480 / 480
Output Total 500 / 500
Balance 480 / 480 -500 / -500
[2024-08-08] MEDS: NSS 1000 IV (13:52)
[2024-08-08] MEDS: FERRLECIT 110 MG IV (13:54)
--- NOTE | 2024-08-08 14:53 | W.PN.UPDATE ---
Update Note
Progress Note Update
Seen and evaluated. Reviewed CT angiogram images. Reviewed report. He has extensive bulky plaque throughout all arteries bilateral lower extremities. However he has got bulky occlusive plaque in bilateral common femoral arteries. I do not think
they are safe clamping points in the common femoral more proximally or in the external iliac artery. In addition he has occlusive disease in the SFA. From a technical standpoint I do not even know that it would be safe to to do femoral
endarterectomies and bypasses which is what he would need for limb salvage. Not to mention from a medical standpoint with extensive comorbidities including bad COPD, and now finding on CT scan of cirrhosis as well as pulmonary nodules. There is no
minimally invasive option here for limb salvage. I discussed with him that primary amputation may be more reasonable. The left side is really the more pressing side due to gangrene of the first toe. However it is dry. There is no wet gangrene.
However imaging demonstrates osteomyelitis. In terms of level of amputation, likely [id number] amputation and even no guarantee that that would heal. I think palliative care should be involved and palliative measures may be considered.
[2024-08-08 15:35] VITALS: BP 141/79
--- NOTE | 2024-08-08 15:35 | PTCARENOTE ---
Assumed care of pt from previous nurse. pt denies pain. Pt denies respiratory distress. Pt call parker is within reach, pt rings yvonne., bed alarm in place. will cont to monitor.
[2024-08-08] MEDS: LIPITOR 40 MG PO (18:06)
[2024-08-08] MEDS: LOVENOX 40 MG SC (18:06)
[2024-08-08] MEDS: SENOKOT 8.6 MG PO (22:04)
[2024-08-08] MEDS: ZYRTEC 10 MG PO (22:04)
[2024-08-08] MEDS: ASPIR LOW (ENTERIC COATED) 81 MG PO (22:04)
[2024-08-08] MEDS: DILAUDID 0.5 MG IV (22:59)
[2024-08-08 23:38] VITALS: BP 134/77
[2024-08-09] MEDS: ZOSYN 50 IV ×4 (02:40→20:47)
[2024-08-09] MEDS: DILAUDID 0.5 MG IV ×2 (03:58→21:05)
[2024-08-09] MEDS: SPIRIVA RESPIMAT 2.5 MCG 2 PUFF INH (07:20)
[2024-08-09] MEDS: SYMBICORT 160/4.5 MCG INHALER 2 PUFF INH ×2 (07:21→20:13)
[2024-08-09] MEDS: LEXAPRO 5 MG PO (08:07)
[2024-08-09] MEDS: MIRALAX 17 GRAMS PO (08:08)
[2024-08-09] MEDS: PROTONIX 40 MG PO (08:08)
[2024-08-09] MEDS: COLACE 100 MG PO (08:08)
[2024-08-09] MEDS: NICODERM TRANSDERMAL 14 MG TRANSDERM (08:09)
[2024-08-09 08:50] VITALS: BP 153/80
[2024-08-09] MEDS: NSS 1000 IV (10:39)
--- NOTE | 2024-08-09 13:44 | W.PN.HOSP.TC ---
Addendum entered and electronically signed by Alivia Escobar MD 08/11/24 11:10:
# Acute on chronic respiratory failure
Original Note:
Today's Communication/Plan
-
IV AB
Assessment / Plan
Assessment / Plan
83-year-old man with nonhealing left big toe ulcer. Patient was using Epsom salt baths and peroxide for the past month.
X-ray of the toe-soft tissue defect in the medial aspect of the great toe
CVS: S1-S2 normal
Chest: CTA B/L
Abdomen: Soft, NT ,Bowel sounds present
Extremities: Left big toe gangrene
Plantar ulcer right foot.
CTA-moderate hepatic cirrhosis.
- Abdomen-moderate to severe diverticulosis of the sigmoid colon. Previous total prostatectomy. Severe discogenic degenerative change L5-S1 severe osteomyelitis in the left great toe.
Deep to an overlying ulceration. Multiple solid pleural-based pulmonary nodules in the right lower lobe largest measuring 1.3 cm and 1.9 cm. Moderate bilateral lower lobe bronchitis.
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
- RLE-Very severe calcific atherosclerotic plaque throughout the iliac arteries with 50% diameter stenosis at the origin of the right FALLON, greater than 70% diameter stenosis of the right IIA and 50 to 70% diameter stenosis in the right EIA.
Complete occlusion of the RCA and SFA. Reconstitution of the distal SFA from collateral blood flow from the profunda femoris artery. Patent popliteal and infrapopliteal arteries containing large amount of atherosclerotic plaque causing severe
stenosis but no occlusion.
-LLE-complete occlusion of the proximal left DAVEY. Patent left posterior tibial and peroneal arteries to the level of the foot. Severe calcific atherosclerotic plaque throughout the left SFA with multilevel severe stenosis more than 70%. Very
severe calcific atherosclerotic plaque in the left SCREW MACHINE HAND causing more than 70% stenosis. Very severe calcific atherosclerotic plaque in the ROVERTO causing 50 to 70% stenosis in the left EIA.
# Nonhealing ulcers on the toes
Left big toe gangrene
Very severe PAD as above
Cellulitis
Continue antiplatelets. Unclear why patient is not on a statin-Added a statin
ID eval appreciated
# Anemia- DEBORA-continue iron IV
# COPD
Chronic hypoxic respiratory failure-on home oxygen
Continue Breztri,Zyrtec, Duo Nebs,
# Coronary disease-continue aspirin
# History of CVA-continue aspirin
# History of prostate cancer
# GERD-PPI
# Depression- Lexapro
# Moderate hepatic cirrhosis per CT- Outpatient GI follow-up.
# Pulmonary nodules-needs workup as outpatient.
# Diverticulosis sigmoid colon
# Discogenic degenerative change L5-S1
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
# Active smoker-cessation counseling.
# DVT Prophylaxis- Lovenox
# DNR
D/W Vascular
D/W Podiatry- No I and D options or amputation in the foot as wound wont heal.
If infections becomes bad , AKA will be the option likely.
Will call Family. was unable to reach daughter.
Overall prognosis guarded given the findings on the CT
Part of this note was created using voice recognition system. Occasional wrong word or��sound alike� substitutions may have inadvertently occurred due to the inherent limitations of voice recognition software. If noted kindly bring it to my
attention for correction.
Anticipated Discharge: 24 - 48 hours
Subjective/Interval History
-
Date of Service: August 09, 2024
Objective Data
-
Vital Signs:
Vital Signs
Temp Pulse Resp BP Pulse Ox
98.4 F 87 17 153/80 98
08/09/24 08:50 08/09/24 08:50 08/09/24 08:50 08/09/24 08:50 08/09/24 08:50
I&O
08/08/24 08/09/24 08/10/24
06:59 06:59 06:59
Intake Total 1520 / 1520
Output Total 500 / 500 600 / 600
Balance -500 / -500 920 / 920
--- NOTE | 2024-08-09 15:00 | W.PN.UPDATE ---
Update Note
Progress Note Update
Called patient's daughter not able to reach
Long discussion with patient's grandson.
Reviewed all CT findings including vascular findings, pulmonary nodules, cirrhosis.
My discussions with podiatry and vascular discussed with grandson that he is not a surgical candidate. Discussed about dry gangrene wet gangrene and amputation.
They want to avoid amputation as patient is not sure if he can go through recovery from that.
Discussed that antibiotics may not be getting to an infected area and if infection sets in that may be an the only option.
Grandson thinks that patient would be happy if he goes home and not to rehab
He would like case management to discuss what kind of services he gets at home so that they can prepare.
He will have to talk to other people in the family to make arrangements
I have consulted PT and OT, ambulate with surgical shoe on the left
They are agreeable for palliative care
Case management consult placed for that
Total time spent for the patient today more than 50 minutes
[2024-08-09 15:20] VITALS: BP 156/91
[2024-08-09] MEDS: FERRLECIT 110 MG IV (15:28)
--- NOTE | 2024-08-09 16:15 | CM ---
Chart reviewed and case fitter received a request for palliative care, referral sent, patient needs PT/OT evaluations.
Plan; To follow with progress.
[2024-08-09] MEDS: LIPITOR 40 MG PO (18:10)
[2024-08-09] MEDS: LOVENOX 40 MG SC (18:10)
[2024-08-09] MEDS: PROTONIX PO ×2 (20:47→20:48)
[2024-08-09] MEDS: COLACE PO ×2 (20:47→20:48)
[2024-08-09] MEDS: SENOKOT PO (22:19)
[2024-08-09] MEDS: ASPIR LOW (ENTERIC COATED) 81 MG PO (22:21)
[2024-08-09] MEDS: ZYRTEC 10 MG PO (22:21)
[2024-08-09 23:05] VITALS: BP 123/63
[2024-08-10] MEDS: ZOSYN 50 IV ×2 (02:25→08:00)
[2024-08-10 07:52] VITALS: BP 158/79
[2024-08-10] MEDS: NICODERM TRANSDERMAL 14 MG TRANSDERM (08:00)
[2024-08-10] MEDS: LEXAPRO 5 MG PO (08:01)
[2024-08-10] MEDS: PROTONIX 40 MG PO (08:02)
[2024-08-10] MEDS: COLACE PO ×2 (08:02→20:04)
[2024-08-10] MEDS: SPIRIVA RESPIMAT 2.5 MCG 2 PUFF INH (08:03)
[2024-08-10] MEDS: SYMBICORT 160/4.5 MCG INHALER 2 PUFF INH ×2 (08:03→19:52)
[2024-08-10 08:08] LABS: Hematocrit 29.2 % (39.0-52.0); Hemoglobin 7.6 g/dL (13.0-18.0); Mean Corpuscular Hgb 20.3 pg (27.0-31.0); Mean Corpuscular Volume 77.9 fL (80.0-94.0); Mean Platelet Volume 8.7 fL (7.4-10.4); Platelet Count 331 10^3/uL (130-400); Red Blood Cell Count 3.75 10^6/uL (4.70-6.10); Red Cell Dist. Width 19.9 % (11.5-14.5); White Blood Cell Count 7.2 10^3/uL (4.8-10.8)
[2024-08-10] MEDS: MIRALAX PO (08:49)
[2024-08-10 09:23] LABS: Blood Urea Nitrogen 10 mg/dl (9-20); Calcium 7.9 mg/dl (8.4-10.2); Carbon Dioxide 27 mmol/L (22-30); Chloride 103 mmol/L (98-107); Estimated Creatinine Clearance 77 ml/min; Glucose 70 mg/dl (70-99); Potassium 4.4 mmol/L (3.5-5.1); Sodium 138 mmol/L (135-145); eGFR > 60.00
--- NOTE | 2024-08-10 09:37 | W.PN.ID1 ---
Date of Service
Date of Service: August 10, 2024
Today's Communication
DC Zosyn. ID will sign off.
Assessment / Plan
# Dry gangrene left hallux
# Osteomyelitis of left hallux
# Severe PAD
# Tobacco abuse disorder
-Per [facility], severe PAD not amenable to endovascular nor surgical intervention.
- Pt refuses AKA due to high risk surgical candidate.
- Discussed with patient that antibiotic is futile without blood flow. He understands.
DC Zosyn.
- Smoking cessation encouraged.
ID will sign off.
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
COPD chronic hypoxic respiratory failure on home O2
Asbestosis with pleural plaques
CVA
CAD
Prostate cancer status post prostatectomy
Right knee replacement
Hernia repair
Chief Complaint
-: Other (toe gangrene)
Subjective / Review of Systems
No toe pain. c/o right heel discomfort, chronic
Vital Signs / Physical Exam
Vital Signs
Vital Signs
Temp Pulse Resp BP Pulse Ox
98.2 F 78 20 158/79 97
08/10/24 07:52 08/10/24 08:06 08/10/24 08:06 08/10/24 07:52 08/10/24 08:06
Physical Exam
Constitutional: No Acute Distress and Chronically Ill
Pulmonary: Clear
Gastrointestinal: Soft, Non Tender, Non Distended and Normal Bowel Sounds
Extremities: Negative Edema
Wound: Other (LEft hallux black)
Objective Data
Lab Data
Lab Results
08/10/24 07:34
08/10/24 07:34
ESR 74 mm/hour (0-20) H 08/06/24 12:14
PT 13.4 Sec (11.4-14.6) 08/06/24 12:15
INR 0.99 08/06/24 12:15
Estimated Creat Clear 77 ml/min 08/10/24 07:34
Total Bilirubin 0.4 mg/dl (0.2-1.3) 08/06/24 12:14
AST 27 U/L (17-59) 08/06/24 12:14
ALT 17 U/L (0-50) 08/06/24 12:14
Alkaline Phosphatase 150 U/L (38-126) H 08/06/24 12:14
C-Reactive Protein 70.50 mg/L (0.0-10.00) H 08/06/24 12:15
Most recent labs reviewed.
Micro Results:
08/06/24 12:15 Influenza Types A & B (MERVAT) - Final
Nasal Swab Negative for Influenza A & B, NAAT
Negative results must be combined with clinical observations
and patient history.
Nucleic Acid Amplification test (NAAT)performed on the
[employer] platform.
08/06/24 CXR: No acute cardiopulmonary process. Chronic changes as described.
08/06/24 Toe XRAY: Soft tissue defect along the medial aspect of the great toe. Underlying slight lucency involving the great toe distal phalanx medial base, suspicious for osteomyelitis. Surrounding soft tissue swelling. Mild to moderate
degenerative changes of the visualized joints. No acute fractures or dislocation.
--- NOTE | 2024-08-10 10:08 | W.PN.HOSP.TC ---
Addendum entered and electronically signed by Alivia Escobar MD 08/10/24 14:45:
total DC time 40 min
Addendum entered and electronically signed by Alivia Escobar MD 08/10/24 11:10:
updated daughter with regard to CT finding of cirrhosis and lung nodules.
Informed that pt could follow up with specialists if they chose to investigate further, although it is also completely reasonable if they do not want further investigation further with current transitioning to palliative care for toe OM.
Original Note:
Today's Communication/Plan
-
see A/P
Assessment / Plan
Assessment / Plan
HPI: 83-year-old man p/w nonhealing left big toe ulcer. Patient was using Epsom salt baths and peroxide for the past month.
X-ray of the toe noted soft tissue defect in the medial aspect of the great toe
CTA
1. MODERATE HEPATIC CIRRHOSIS.
2. Moderate to severe diverticulosis in the sigmoid colon.
3. Previous total prostatectomy.
4. Severe discogenic degenerative disease at L5/S1.
5. ACUTE OSTEOMYELITIS in the LEFT GREAT TOE deep to an overlying ulceration.
6. Multiple solid pleural-based pulmonary nodules in the right lower lobe (the largest measuring 1.3 cm and 1.9 cm in size).
7. Moderate bilateral lower lobe bronchitis.
ABDOMINAL AORTA:
1. 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
2. 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
RIGHT LOWER EXTREMITY:
1. Very severe calcific atherosclerotic plaque throughout the iliac arteries with a 50% diameter stenosis at the origin of the right common iliac artery, greater than 70% diameter stenosis in the right internal iliac artery, and 50-70% diameter
stenosis in the right external iliac artery.
2. COMPLETE OCCLUSION of the RIGHT COMMON FEMORAL and SUPERFICIAL FEMORAL ARTERIES.
3. Reconstitution of the distal superficial femoral artery from collateral blood flow from the profundus femoral artery.
4. Patent popliteal and infrapopliteal arteries containing a large amount of atherosclerotic plaque causing severe stenoses, but no occlusion.
LEFT LOWER EXTREMITY:
1. COMPLETE OCCLUSION of the PROXIMAL LEFT ANTERIOR TIBIAL ARTERY. Patent left posterior tibial and peroneal arteries to the level of the foot.
2. Severe calcific atherosclerotic plaque throughout the left superficial femoral artery with multilevel severe stenoses (greater than 70% diameter).
3. Very severe calcific atherosclerotic plaque in the left common femoral artery causing greater than 70% diameter stenosis.
4. Very severe calcific atherosclerotic plaque in the left iliac arteries causing 50-70% diameter stenosis in the left external iliac artery.
A/P:
# L great toe osteomyelitis
# severe BL PAD
Continue antiplatelets. Added statin
Per Vacular, severe PAD not amenable to endovascular nor surgical intervention. Recc AKA but despite AKA, not clear if wound would heal
Per ID, antibiotic is futile without blood flow. DCed Zosyn.
Plan is to proceed with palliative care with current poor prognosis
Smoking cessation encouraged.
# Anemia, DEBORA
continue iron IV
# COPD with Chronic hypoxic respiratory failure on home oxygen
Continue Breztri, Zyrtec, Duo Nebs
# Coronary disease
# History of CVA
continue aspirin
# History of prostate cancer
# GERD-PPI
# Depression- Lexapro
# Moderate hepatic cirrhosis per CT
Outpatient GI follow-up.
# Pulmonary nodules
needs workup as outpatient.
# Diverticulosis sigmoid colon
# Discogenic degenerative change L5-S1
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
# Active smoker-cessation counseling.
DVT Prophylaxis- Lovenox
DNR
d/w grandson in person
d/w CM
Anticipated Discharge: Today
Subjective/Interval History
-
Date of Service: August 10, 2024
Objective Data
-
Labs:
Laboratory Results
08/10/24
07:34
WBC 7.2
Hgb 7.6 L
Hct 29.2 L
Plt Count 331
Sodium 138
Potassium 4.4
Chloride 103
Carbon Dioxide 27
BUN 10
Creatinine 0.7
Glucose 70
Calcium 7.9 L
Vital Signs:
Vital Signs
Temp Pulse Resp BP Pulse Ox
36.8 C 78 20 158/79 97
08/10/24 07:52 08/10/24 08:06 08/10/24 08:06 08/10/24 07:52 08/10/24 08:06
I&O
08/09/24 08/10/24 08/11/24
06:59 06:59 06:59
Intake Total 1520 / 1520 620 / 620
Output Total 600 / 600 600 / 600
Balance 920 / 920 20 /
Review of Systems
-
All other systems: Reviewed and negative
Physical Exam
-
General: Well Developed, Well Nourished, Comfortable, Respiratory Distress (chronic), Conversant and Appears Chronically Ill
HEENT: Normocephalic, Atraumatic, Moist Mucous Membranes and Oxygen (5L NC)
Respiratory: Clear to Auscultation and Non Labored Respirations; Negative Accessory Resp Muscle Use
Cardiac: Regular Rhythm and S1/S2
GI: Soft, Nontender, Nondistended and Normal Bowel Sounds
Skin: Lesions (L great toe, see wound care note)
Neuro: Awake and Alert
Psych: Calm and Intact Judgement/Insight
Data Reviewed
-
CT Scan: Report Reviewed by me
Labs: Labs Reviewed by me
--- NOTE | 2024-08-10 11:35 | CM ---
Plan is for discharge home today, daughter and grandson to take care of patient. Plan is to home with [facility] and Palliative care referral, which was sent, nursing to continue to wean oxygen, [facility] liaison to set up visiting nurses for patient, per
grandson he would like ambulance to home, patient is assist X2. Home oxygen from [employer].
Plan; Home today with [facility], [employer] home oxygen and referral to Palliative care.
[2024-08-10] MEDS: DILAUDID 0.5 MG IV (12:05)
--- NOTE | 2024-08-10 12:30 | VNURNOTE ---
Addendum entered by Lynne Dillard RN 08/10/24 13:20:
Patient now on 4L and weaning 02 down. No need for new home 02 equip at this time.
Original Note:
Home Health Liaison met with patient at bedside to discuss [facility] nurse/therapy, visits, schedule and homebound status. Patient is agreeable and understands that visits at home will be 2-3 x per week to assess and teach medical management. Patient is
aware that [facility] will contact them for start of care in 1-2 days after discharge from . Patient currently on 5L. He confirms that he has home 02 but unsure of max L flow for home concentrator. Call out to Vignesh Brennan at [employer]. Also called pt's
yonatan Berumen (per pt request). Ata unsure but will check. Ata confirmed patient has portable tanks and nebulizer at home. Obtained wound care orders from Dr Escobar, included in referral.
[facility] referral completed in [facility].
To confirm home 02 specs pending return call from PAYAM and/or yonatan.
--- NOTE | 2024-08-10 13:47 | W.DCSUMMARY ---
Discharge Summary
Discharge Data
Date of Admission: 08/06/24
Date of Discharge: 08/10/24
-
Pending Results: No
Hospital Course
Principal Diagnosis:
L great toe osteomyelitis
Severe bilateral peripheral artery disease
Chronic Diagnoses:�
Coronary artery disease
History of stroke
History of prostate cancer
GERD
Depression on Lexapro
Moderate hepatic cirrhosis per CT. Outpatient GI follow-up.
Pulmonary nodules. Outpatient Pulm follow up.
Diverticulosis of sigmoid colon
Discogenic degenerative change L5-S1
Fusiform infrarenal AAA 4.1 cm containing extensive thrombus.
Active smoker
Anemia, DEBORA
COPD with Chronic hypoxic respiratory failure on home oxygen at 2L NC
Consultations:�
Infectious disease
Vascular surgery
Procedures:�
None
Clinical course:�
This is a 83-year-old man with past medical history as stated above, who presented with left big toe ulcer.
CTA:
1. MODERATE HEPATIC CIRRHOSIS.
2. Moderate to severe diverticulosis in the sigmoid colon.
3. Previous total prostatectomy.
4. Severe discogenic degenerative disease at L5/S1.
5. ACUTE OSTEOMYELITIS in the LEFT GREAT TOE deep to an overlying ulceration.
6. Multiple solid pleural-based pulmonary nodules in the right lower lobe (the largest measuring 1.3 cm and 1.9 cm in size).
7. Moderate bilateral lower lobe bronchitis.
ABDOMINAL AORTA:
1. 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
2. 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
RIGHT LOWER EXTREMITY:
1. Very severe calcific atherosclerotic plaque throughout the iliac arteries with a 50% diameter stenosis at the origin of the right common iliac artery, greater than 70% diameter stenosis in the right internal iliac artery, and 50-70% diameter
stenosis in the right external iliac artery.
2. COMPLETE OCCLUSION of the RIGHT COMMON FEMORAL and SUPERFICIAL FEMORAL ARTERIES.
3. Reconstitution of the distal superficial femoral artery from collateral blood flow from the profundus femoral artery.
4. Patent popliteal and infrapopliteal arteries containing a large amount of atherosclerotic plaque causing severe stenoses, but no occlusion.
LEFT LOWER EXTREMITY:
1. COMPLETE OCCLUSION of the PROXIMAL LEFT ANTERIOR TIBIAL ARTERY. Patent left posterior tibial and peroneal arteries to the level of the foot.
2. Severe calcific atherosclerotic plaque throughout the left superficial femoral artery with multilevel severe stenoses (greater than 70% diameter).
3. Very severe calcific atherosclerotic plaque in the left common femoral artery causing greater than 70% diameter stenosis.
4. Very severe calcific atherosclerotic plaque in the left iliac arteries causing 50-70% diameter stenosis in the left external iliac artery.
Problem 1:
L great toe osteomyelitis with severe bilateral peripheral artery disease.
Per Vacular, the patient's severe PAD is not amenable to endovascular or surgical intervention.
Although AKA was recommended, the patient refused surgery and it is also unclear if this would help with wound healing anyway.
Per ID, antibiotic is futile without blood flow. The patient received Zosyn which was discontinued prior to discharge.
He was discharged home with palliative care to continue outpatient in setting of his current poor prognosis.
He has been advised to stop smoking.
As for the rest of his medical problems, they were stable during his hospital stay.
Discharge Plan
-
Patient Disposition: Home with Home Care
Discharge Diagnosis/Procedures: L great toe osteomyelitis with severe bilateral peripheral artery disease
Condition: Fair
Diet: As tolerated
Activity: As tolerated
Driving Restrictions: No driving
Activity Restrictions/Additional Instructions:
Follow up with a environmental associate (lung doctor) for the pulmonary nodule noted on CT scan (multiple solid pleural-based pulmonary nodules in the right lower lobe, the largest measuring 1.3 cm and 1.9 cm in size).
Follow up with GI doctor for cirrhosis noted on CT scan.
Referrals:
Prateek Paniagua MD [Family Provider, Family Practice]
Misty Silva DPM [Specified Professional Personl, Podiatry] - in less than 1 week
Christian Gillette MD [Active, Vascular Surgery]
Additional Discharge Medication Instructions: we have added Lipitor 40 mg daily
Prescriptions:
New
atorvastatin 40 mg Tablet
40 mg PO QPM Qty: 30 0RF
Continued
multivitamin Tablet
1 tab PO DAILY
sennosides [Senokot] 8.6 mg Tablet
8.6 mg PO HS
cetirizine [Zyrtec] 10 mg Tablet
10 mg PO HS
aspirin 81 mg Tablet,Delayed Release (Dr/Ec)
81 mg PO HS
pantoprazole 40 mg tablet,delayed release (DR/EC)
40 mg PO DAILY
albuterol sulfate 90 mcg/actuation HFA aerosol inhaler
2 puff INHALATION R Q6HPRN PRN (Reason: sob/wheezing)
Breztri Aerosphere 160-9-4.8 mcg/actuation HFA aerosol inhaler
2 inh INHALATION R BID
ipratropium-albuterol 3 ML solution for nebulization
3 ml inhalation R Q4HPRN PRN (Reason: copd)
naproxen sodium [Aleve] 220 mg Tablet
220 mg PO BIDPRN PRN (Reason: mild pain)
escitalopram oxalate [Lexapro] 5 mg Tablet
5 mg PO DAILY
Discharge Orders:
Discharge Patient (As Directed); Ordered 08/10/24
Ordered By: Alivia Escobar
Discharge Date and Time
Print Language: PASHTO
[2024-08-10 15:00] VITALS: BP 159/89
[2024-08-10] MEDS: FERRLECIT 110 MG IV (15:40)
[2024-08-10] MEDS: LIPITOR 40 MG PO (17:22)
[2024-08-10] MEDS: LOVENOX 40 MG SC (17:22)
[2024-08-10] MEDS: PROTONIX PO (20:04)
[2024-08-10 20:25] VITALS: BP 142/85
--- NOTE | 2024-08-10 20:39 | PTCARENOTE ---
IV access removed and pt d/c'd home with all belongings.
--- NOTE | 2024-08-11 09:39 | PN.CDI ---
CDI
- -
CDI:
Physician Documentation Request
Admit Date: 08/06/24 14:24
Dear Doctor,
Please review the following and provide your response in the progress notes.
Clinical Indicators:
Pt admitted for left great toe osteomyelitis.
08/06 H&P: '81M HX home O2 dependent COPD and chronic hypoxic respiratory failure seen at ER:
- from home for reported shortness of breath as well as worsening wound to the left great toe.
- Patient is not certain why he is here however was sent in by family due to these complaints.
- he has been short of breath for 15+ years and denies any acute worsening.
Respiratory : reports trouble breathing'
08/09 Nursing assessment noted Dyspnea at rest/ dyspnea on exertion
Pt on 6LNC from 08/08 - 08/10
RR 18-26
08/10 Discharge summary: ' COPD with Chronic hypoxic respiratory failure on home oxygen at 2L NC.'
Clarify which of the following accurately represents the patient's respiratory status:
Acute on chronic respiratory failure
Chronic respiratory failure Only
Other
Additional information for Respiratory Failure:
Recognized criteria for Respiratory Failure (Source: Ifeoma Whitley. 2019 January 07.
Documentation tips: Acute Respiratory Failure, The Hospitalist.)
ABGs: (1 or more) Symptoms Please indicate type if known
1. p)2 <60 or RA SPO2 <91% on RA 1. Tachypnea, SOB, dyspnea Hypoxic
2. pCO2 >45 and pH <7.35 2. Use of accessory muscles Hypercapnic
3. pO2 decrease of pCO2 increase by 3. Pallor or cyanosis Hypoxic and Hypercapnic
10 mmHg from baseline if known 4. Anxiety or restlessness Unable to determine
4. P/F Ratio (pO2/FiO2)nless than 300 5. Unable to speak in full sentences
Use of terms such as suspected, likely, concern for, or probable (associated with a specific diagnosis that is being evaluated, monitored, or treated as if it exists) are acceptable and can be coded in the inpatient setting, when documented at the
time of discharge.
Thank you,
Irma Baker RN, BSN
CDI Specialist
[place] [facility]
Please use your independent medical judgment in providing your response.
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
--- NOTE | 2024-08-12 08:09 | W.PN.UPDATE ---
Update Note
Progress Note Update
confusion only
== END 2024-08-10 20:39 | disposition home health service (06) | DRG 539 ==
LOC: 4 WEST ACU 14:24
PROVIDERS: Hospitalist; Physician Assistant; ADMITTING PHYSICIAN Internal Medicine; ATTENDING PHYSICIAN Internal Medicine; CONSULT PHYSICIAN Internal Medicine Infectious Disease; CONSULT PHYSICIAN Surgery Vascular Surgery; EMERGENCY PHYSICIAN Emergency Medicine; FAMILY PHYSICIAN Family Medicine
DX: M86.172 Other acute osteomyelitis, left ankle and foot (principal); J96.20 Acute and chronic respiratory failure, unspecified whether with hypoxia or hypercapnia; E11.52 Type 2 diabetes mellitus with diabetic peripheral angiopathy with gangrene; L03.116 Cellulitis of left lower limb; J44.1 Chronic obstructive pulmonary disease with (acute) exacerbation; J96.11 Chronic respiratory failure with hypoxia; F17.210 Nicotine dependence, cigarettes, uncomplicated; I25.10 Atherosclerotic heart disease of native coronary artery without angina pectoris; F41.9 Anxiety disorder, unspecified; K21.9 Gastro-esophageal reflux disease without esophagitis; Z66 Do not resuscitate; L97.529 Non-pressure chronic ulcer of other part of left foot with unspecified severity; D50.9 Iron deficiency anemia, unspecified; F32.A Depression, unspecified; K57.30 Diverticulosis of large intestine without perforation or abscess without bleeding; I71.43 Infrarenal abdominal aortic aneurysm, without rupture; Z51.5 Encounter for palliative care; Z79.899 Other long term (current) drug therapy; Z86.73 Personal history of transient ischemic attack (TIA), and cerebral infarction without residual deficits; Z11.52 Encounter for screening for COVID-19; E11.621 Type 2 diabetes mellitus with foot ulcer
CPT/HCPCS: 71046; 73610; 73660; 75635; 80048; 80053; 82607; 82728; 83540; 83550; 85025; 85027; 85610; 85652; 86140; 87502; 87811; 94640; 96374; 96375; 99284; 99406; J2916; Q9967